=== PATIENT | female | born 1985 | race Caucasian/White ===

== ENCOUNTER 2018-11-18 08:26 | Emergency (ER) | payer MEDICAID ==
[2018-11-18] MEDS: predniSONE 20 MG TAB PO (08:54)
[2018-11-18] MEDS: ALBUTEROL 0.5% (NEB) 2.5 MG/0.5 ML AMP INH (09:23)
[2018-11-18] MEDS: IPRATROPIUM (NEB) 0.5 MG/2.5 ML AMP NEB (09:23)
== END 2018-11-18 11:32 | disposition home or self-care (01) ==
LOC: FTE 08:26
DX: J45.901 Unspecified asthma with (acute) exacerbation (principal); J06.9 Acute upper respiratory infection, unspecified
CPT/HCPCS: 71045; 94644; 99283-25

== ENCOUNTER 2019-04-15 09:22 | Emergency (ER) | payer MEDICAID ==
[2019-04-15] MEDS: METHYLPREDNISOLONE 125 MG INJ IV (10:52)
[2019-04-15] MEDS: IPRATROPIUM (NEB) 0.5 MG/2.5 ML AMP NEB (10:53)
[2019-04-15] MEDS: ALBUTEROL 0.083% (NEB) 2.5 MG/3 ML AMP NEB (10:53)
== END 2019-04-15 11:38 | disposition home or self-care (01) ==
LOC: FTE 09:22
DX: J45.901 Unspecified asthma with (acute) exacerbation (principal); J02.9 Acute pharyngitis, unspecified
CPT/HCPCS: 87880; 94664; 96374; 99284-25